=== PATIENT | male | born 1970 | race Caucasian/White ===

== ENCOUNTER 2017-04-30 19:15 | Emergency (ER) | payer SELFPAY ==
[~2017-04-30] VITALS: Ht 172.7 cm; Wt 81.6 kg
--- NOTE | 2017-04-30 19:15 | NUR ---
Patient was BIB [facility] at this time and taken to [facility].
--- NOTE | 2017-04-30 19:26 | NUR ---
Dr. Quezada evaluating patient.
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
--- NOTE | 2017-04-30 19:30 | NUR ---
PATIENT BIB [facility]. PATIENT EXAMINED BY DR. MOORE. PATIENT MEDICALLY CLEARED AND RELEASED IN CUSTODY IN STABLE CONDITION. ORIGINAL PRE-BOOK FORM GIVEN TO OFFICER BRITTANY.
== END 2017-04-30 19:30 ==
LOC: MED 19:15
DX: Z02.89 Encounter for other administrative examinations (principal)
CPT/HCPCS: 99283